=== PATIENT | female | born 1995 | race Caucasian/White ===

== ENCOUNTER 2018-06-17 18:07 | Emergency (ER) | payer BC ==
[~2018-06-17] VITALS: Ht 154.9 cm; Wt 54.4 kg
[2018-06-17 18:13] VITALS: Ht 154.9 cm; Wt 54.4 kg
[2018-06-17 20:33] VITALS: BP 126/86
== END 2018-06-17 20:33 | disposition home or self-care (01) ==
LOC: ED 18:07
DX: S52.602A Unspecified fracture of lower end of left ulna, initial encounter for closed fracture (principal); V49.9XXA Car occupant (driver) (passenger) injured in unspecified traffic accident, initial encounter; Y93.I9 Activity, other involving external motion; Y92.413 State road as the place of occurrence of the external cause; Y99.8 Other external cause status